=== PATIENT | male | born 1965 | race Caucasian/White ===

== ENCOUNTER → 2018-12-12 | Outpatient (CLI) | payer BC ==
[~2018-12-12] MED LIST: REGADENOSON 0.4 MG/5 ML DISP.SYRIN. IV ONE
--- NOTE | 2018-12-12 12:14 | PCVCIMAG ---
APPROVED REPORT Imaging Protocol: Rest Tc-99m/Stress Tc-99m 1 day Study performed: 12/12/2018 10:03:56 Indication: Dyspnea Patient Location: Out-Patient Stress Nurse: Celina Andrew RN, Stacie Clarke RN GA Tech:Betty Lucero [facility] Ht: 6 ft 0 in Wt: 253 lbs BSA: 2.35 m2 HR: 50 bpm BP: 135/73 mmHg BMI: 34.30 Rhythm: Sinus Bradycardia, Abn T wave Medical History Medical History: Hyperlipidemia Medications: Warfarin Allergies: Zithromax, Morphine Cardiac Risk Factors: Fm Hx of CAD, Age Pretest Chest Pain Characteristics: No chest pain Exercise History: Physically active Resting Data Rest SPECT myocardial perfusion imaging was performed in supine position 45 minutes following the intravenous injection of 10 mCi of Tc-99m Sestamibi. Time of rest injection: 0915 Date: 12/12/2018 Administration Route: IV Administration Site: Right Arm Pharmacologic Stress Pharmacologic stress test was performed by injecting Regadenoson 0.4 mg IV push over 10-15 seconds immediately followed by the intravenous injection of 29.1 mCi of Tc-99m Sestamibi. Time of stress injection: 1030 Date: 12/12/2018 Administration Route: IV Administration Site: Right Arm Gated Stress SPECT was performed 45 minutes after stress injection. The images were gated to evaluate regional wall motion and calculate left ventricular ejection fraction. Stress Test Details Stress Test: Pharmacologic stress testing performed using 0.4 mg of regadenoson per 5 mL given IV over 10 seconds. Reason for pharmacologic stress test: physical limitation, spinal stenosis. HRMax Heart Rate (APMHR): 165 bpm Resting HR: 50 bpmTarget HR (85% APMHR): 140 bpm Max HR Achieved: 93 bpm % of APMHR: 56 Recovery HR: 66 bpm BP Resting BP: 135/73 mmHg Max BP: 135/79 mmHg Recovery BP: 127/69 mmHg ECG Resting ECG: Sinus Bradycardia, Abn T wave Stress ECG: Sinus Rhythm, Abn T wave Arrhythmia: None Recovery ECG: Sinus Rhythm, Abn T wave Clinical Reason for Termination: Completed protocol Stress Symptoms: Dyspnea, Nausea Symptoms resolved with caffeine. Stress ECG Conclusion 1. Adequate response to intravenous Lexiscan 2. Inadequate heart rate for ECG diagnosis Study Data Post stress, the left ventricular ejection was 64%.. SSS: 0 SRS: 2 SDS: 0 TID = 0.78. Perfusion There is a medium area of moderately reduced uptake in the mid and apical segment of the inferolateral wall which is seen on the stress images and improves on the resting images. This area thickens and moves normally and is most consistent with ischemia although artifact cannot be excluded. Wall Motion Normal left ventricular wall motion. Nuclear Conclusion ECG Findings: non-diagnostic Clinical Findings: negative for ischemia Nuclear Findings: equivocal with partial reversibility of a defect noted Exercise Capacity: not assessed Left Ventricular Function: normal 1. Intermediate risk study based on a region of partial reversibility of an inferolateral lateral apical wall defect. Clinical correlation suggested 2. Post-rest left ventricle ejection fraction of 64% with normal contractility <Conclusion> 1. Adequate response to intravenous Lexiscan 2. Inadequate heart rate for ECG diagnosis
--- NOTE | 2018-12-12 12:16 | PCVCIMAG ---
APPROVED REPORT Study performed: 12/12/2018 08:38:06 EXAM: Comprehensive 2D, Doppler, and color-flow Echocardiogram Patient Location: Echo lab Room #: 2Status: routine BSA: 2.35 HR: 50 bpmBP: 134/76 mmHg Rhythm: Bradycardia Other Information Study Quality: Adequate Risk Factors: Cardiac Risk Factors: Hyperlipidemia Indications Pulmonary Embolism Dyspnea TONY, HX: Pulmonary emboli, Factor V deficiency 2D Dimensions IVSd: 10.58 (7-11mm)LVOT Diam: 22.07 (18-24mm) LVDd: 46.29 mm PWd: 8.34 (7-11mm)Ascending Ao: 28.91 (22-36mm) LVDs: 31.75 (25-40mm) Left Atrium: 41.64 (27-40mm) Aortic Root: 25.14 mm LV Single Plane 4CH: 54.32 % LV Single Plane 2CH: 58.16 % Biplane EF: 56.0 % Volumes Left Atrial Volume (Systole) Single Plane 4CH: 53.53 mLSingle Plane 2CH: 59.25 mL Biplane LA Volume: 59.00 mLLA ESV Index: 25.00 mL/m2 Aortic Valve AoV Peak Manuel.: 1.29 m/s AO Peak Gr.: 6.68 mmHgLVOT Max P.70 mmHg LVOT Max V: 0.82 m/s CORNELL Vmax: 2.43 cm2 Mitral Valve E/A Ratio: 1.2 MV Decel. Time: 116.44 ms MV E Max Manuel.: 0.82 m/s MV A Manuel.: 0.66 m/s TDI E/Lateral E': 6.83E/Medial E': 6.83 Medial E' Manuel.: 0.12 m/s Lateral E' Manuel.: 0.12 m/s Pulmonary Valve PV Peak Manuel.: 1.00 m/sPV Peak Gr.: 3.99 mmHg Pulmonary Vein P Vein S: 0.61 m/sP Vein A: 0.30 m/s P Vein D: 0.59 m/sP Vein A Dur.: 86.5 msec P Vein S/D Ratio: 1.03 Tricuspid Valve TR Peak Manuel.: 2.29 m/s TR Peak Gr.: 21.04 mmHg TV Vmax: 0.75 m/sPA Pressure: 28.00 mmHg Left Ventricle The left ventricle is normal size. There is normal LV segmental wall motion. There is normal left ventricular wall thickness. Left ventricular systolic function is normal. The left ventricular ejection fraction is within the normal range. LVEF is 55-60%. Right Ventricle Right ventricle is mildly dilated. The right ventricular systolic function is normal. Atria The left atrium size is normal. Right atrium is mildly dilated. Aortic Valve Aortic valve is trileaflet. No aortic regurgitation is present. There is no aortic valvular stenosis. Mitral Valve The mitral valve is normal in structure. There is no mitral valve regurgitation noted. No evidence of mitral valve stenosis. Tricuspid Valve The tricuspid valve is normal in structure. Trace to mild tricuspid regurgitation with a PA pressure of 28 mmHg. No pulmonary hypertension. Pulmonic Valve The pulmonary valve is normal in structure. There is no pulmonic valvular regurgitation. Great Vessels The aortic root is normal in size. The ascending aorta is normal in size. Aortic arch is normal in caliber. IVC is normal in size and collapses >50% with inspiration. Pericardium There is no pericardial effusion. There is no pleural effusion. <Conclusion> The left ventricle is normal size. LVEF is 55-60%. Right ventricle is mildly dilated. Aortic valve is trileaflet. The mitral valve is normal in structure. The tricuspid valve is normal in structure. Trace to mild tricuspid regurgitation with a PA pressure of 28 mmHg. No pulmonary hypertension. The pulmonary valve is normal in structure. There is no pericardial effusion.
== END | disposition home or self-care (01) ==
LOC: PCVCIMAG 08:12
PROVIDERS: ATTEND Internal Medicine
DX: I07.1 Rheumatic tricuspid insufficiency (principal); I26.99 Other pulmonary embolism without acute cor pulmonale; R94.2 Abnormal results of pulmonary function studies; E78.5 Hyperlipidemia, unspecified; M48.00 Spinal stenosis, site unspecified; Z88.8 Allergy status to other drugs, medicaments and biological substances; Z79.899 Other long term (current) drug therapy; Z72.89 Other problems related to lifestyle
CPT/HCPCS: 78452; 93017; 93306; A9500; J2785